=== PATIENT | female | born 1965 | race African-American/Black ===

== ENCOUNTER 2016-10-09 10:04 | Emergency (ER) | payer MEDICARE, MEDICAID ==
[~2016-10-09] VITALS: Ht 157.5 cm; Wt 74.0 kg
[2016-10-09] MEDS ORDERED: KETOROLAC 60MG/2ML VIAL IM ONE (13:00)
[2016-10-09] MEDS ORDERED: TRAMADOL 50MG TABLET PO ONE (13:00)
[2016-10-09 14:51] VITALS: BP 119/73
== END 2016-10-09 15:04 | disposition home or self-care (01) ==
LOC: ER 10:05
DX: M25.461 Effusion, right knee (principal); I10 Essential (primary) hypertension; F12.10 Cannabis abuse, uncomplicated; Z98.890 Other specified postprocedural states
CPT/HCPCS: 81025; 93971; 96372; 99284; J1885